=== PATIENT | male | born 1990 | race American Indian/Alaskan Native ===

== ENCOUNTER 2020-06-09 22:26 | Emergency (ER) | payer OTHER ==
[2020-06-09] MEDS ORDERED: HYDROcodone/ACETAMINOPHEN 5-325 MG TAB PO ONE (22:49)
[2020-06-09 22:51] VITALS: BP 117/76
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
== END 2020-06-10 00:35 | disposition home or self-care (01) ==
LOC: ED 22:26
DX: S63.91XA Sprain of unspecified part of right wrist and hand, initial encounter (principal); Z79.899 Other long term (current) drug therapy; V49.49XA Driver injured in collision with other motor vehicles in traffic accident, initial encounter; Y93.89 Activity, other specified; Y92.488 Other paved roadways as the place of occurrence of the external cause; Y99.8 Other external cause status
CPT/HCPCS: 99283

== ENCOUNTER 2020-06-10 14:49 | Emergency (ER) | payer SELFPAY ==
[2020-06-10 15:03] VITALS: BP 114/72
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
== END 2020-06-10 15:10 | disposition left against medical advice (07) ==
LOC: ED 14:49
DX: S16.1XXA Strain of muscle, fascia and tendon at neck level, initial encounter (principal); S80.02XA Contusion of left knee, initial encounter; Z53.21 Procedure and treatment not carried out due to patient leaving prior to being seen by health care provider; V49.9XXA Car occupant (driver) (passenger) injured in unspecified traffic accident, initial encounter; Y93.89 Activity, other specified; Y92.488 Other paved roadways as the place of occurrence of the external cause; Y99.8 Other external cause status